=== PATIENT | female | born 1970 | race Two or more races ===

== ENCOUNTER 2017-01-08 19:16 | Emergency (ER) | payer MEDICAID ==
[2017-01-08 20:23] LABS: HCG,QUALITATIVE URINE NEGATIVE
[2017-01-08 20:36] LABS: PH,URINE 6.5 (5.0-8.0); SPECIFIC GRAVITY 1.015 (1.001-1.030); URINE BILIRUBIN NEGATIVE (NEGATIVE); URINE BLOOD 4+ (NEGATIVE); URINE GLUCOSE (UA) NEGATIVE (NEGATIVE); URINE LEUKOCYTE ESTERASE NEGATIVE (NEGATIVE); URINE NITRITE NEGATIVE (NEGATIVE); URINE PROTEIN NEGATIVE (NEGATIVE); URINE UROBILINOGEN NORMAL (0-1 mg/dl)
[2017-01-08 20:38] LABS: URINE APPEARANCE HAZY; URINE COLOR PINK
[2017-01-08 20:43] LABS: URINE EPITHELIAL CELLS 0-2 /hpf; URINE RBC >100 /hpf; URINE WBC NEG /hpf
[2017-01-08 20:44] LABS: URINE BACTERIA FEW
[2017-01-08 20:51] LABS: ABSOLUTE NEUTROPHIL COUNT 3.7 K/mm3 (1.8-7.7); BASO % 0.4 % (0.2-1.0); EOS # 0.1 (0.0-0.5); EOS % 2.1 % (0.9-2.9); HEMATOCRIT 27.8 % (37.0-47.0); HEMOGLOBIN 8.9 gm/l (12.0-16.0); IMM NEUT% 0.4 % (0-1); LYMPH # 2.2 (1.0-4.8); LYMPH % 32.4 % (15-45); MEAN CELL VOLUME 86.9 fl (81.0-99.0); MEAN CORPUSCULAR HEMOGLOBIN 27.8 pg (27.0-31.0); MEAN PLATELET VOLUME 11.1 fl (7.4-10.4); MONO # 0.6 (0.0-0.8); MONO % 9.5 % (4-12); NEUT % 55.2 % (43-75); PLATELET COUNT 258 K/mm3 (130-400); RED CELL DISTRIBUTION WIDTH 14.7 % (11.5-14.5)
[2017-01-08 21:02] LABS: ALB/GLOB RATIO 1.2 (>1.0); ALBUMIN 3.9 gm/dL (3.5-5.7)
[2017-01-08] MEDS ORDERED: MEDROXYPROGESTERONE ACET 2.5 MG TABLET ONE (22:22)
--- NOTE | 2017-01-09 07:51 | US ---
PELVIC COMPLETE, TRANSVAGINAL ECHOGRAPHY History: Bleeding for one month. Comparison: None. Procedure: Transabdominal and transvaginal ultrasonography both were performed for this examination. Findings: Uterus: The uterus is heterogeneous measuring 9.5 x 5.8 x 7.5 cm. There is the suggestion of a left-sided posterior uterine myometrial fibroid measuring up to 2.9 cm in size. Endometrium: The endometrial thickness measures 12.7mm in greatest AP diameter. There is a small amount of fluid within the endometrial canal. No definitive masses are visualized. Right ovary/right adnexa: The right ovary measures 2.9 x 1.3 x 1.8 cm. There is flow within the right ovary. No right adnexal mass is visualized. Left ovary/left adnexa: The left ovary measures 3.7 x 2.3 x 3.4 cm. There is flow within the left ovary. A left ovarian nonvascular cyst is observed measuring up to 2.7 cm in size. Pelvic cul-de-sac: No significant pelvic free fluid is identified. Impression: 1. A heterogeneous appearance of the uterus with a 2.9 cm posterior/left-sided uterine myometrial fibroid. 2. A small amount of fluid within the endometrial canal. 3. A 2.7 cm left ovarian cyst. The findings were called to the emergency room at 2257 hours, 01/08/2017, by [facility] radiology.
== END 2017-01-09 01:09 | disposition home or self-care (01) ==
LOC: ED 19:16
DX: N93.9 Abnormal uterine and vaginal bleeding, unspecified (principal); D64.9 Anemia, unspecified
CPT/HCPCS: 81025; 85025; 80053; 81001; 86901; 86850 ×3; 76856; 76830; 99283 ×2; A9270